=== PATIENT | male | born 1970 | race Hispanic/Latino ===

== ENCOUNTER 2018-02-18 18:47 | Inpatient (IN) | payer BC ==
--- NOTE | 2018-02-18 18:55 | ED PDOC ---
Arrival/HPI - General Time Seen by Provider: 02/18/18 18:51 Historian: Patient - History of Present Illness Narrative History of Present Illness (Text): 02/18/18 18:52 48 y/o male, no significant pmh, nkda, c/o feeling sad and depress after the of his brother recently. Pt. stated that he has been feeling depressed recently, been drinking a lot, found drinking on the street, fall and accidentally hit his posterior head against the floor with abrasion with LOC unknown, last tetanus under 3 years ago, no homicidal or suicidal ideation, no auditory or visual hallucination, no numbness or tingling, no rash, no change in vision, no other medical or psychological complaints. Past Medical History - Provider Review Nursing Documentation Reviewed: Yes Family/Social History - Physician Review Nursing Documentation Reviewed: Yes Family/Social History: Unknown Family HX Allergies/Home Meds Allergies/Adverse Reactions: Allergies No Known Allergies Allergy (Verified 02/18/18 18:53) Home Medications: Home Meds Medication Instructions Recorded Confirmed Alprazolam [Xanax] 0.5 mg PO TID 02/18/18 02/18/18 Review of Systems - Review of Systems Constitutional: absent: Fatigue, Fevers Eyes: absent: Vision Changes ENT: absent: Hearing Changes Respiratory: absent: SOB, Cough Cardiovascular: absent: Chest Pain Gastrointestinal: absent: Abdominal Pain, Nausea, Vomiting Musculoskeletal: absent: Arthralgias, Back Pain, Neck Pain Skin: Skin Lesions (+abrasion posterior scalp). absent: Rash, Pruritis, Laceration, Abscess, Ulcer, Cellulitis Neurological: absent: Headache, Dizziness Psychiatric: Depression. absent: Anxiety, Suicidal Ideation Physical Exam Vital Signs Temp Pulse Resp BP Pulse Ox 02/19/18 01:44 80 21 141/63 97 02/19/18 01:40 98 F 83 02/19/18 01:07 87 18 116/74 99 02/19/18 00:23 85 18 125/73 99 02/18/18 23:00 98.4 F 88 18 126/76 100 02/18/18 21:00 88 18 132/74 99 02/18/18 18:57 98.9 F 96 H 20 153/99 H 98 - Systems Exam Head: Present: Abrasion (posterior occipital scalp approx. 2cm diameter noted with no ulcer or laceration) Pupils: Present: PERRL Extroacular Muscles: Present: EOMI Conjunctiva: Present: Normal Ears: Present: NORMAL TM, Normal Canal. No: Erythema Mouth: Present: Moist Mucous Membranes, Normal Teeth Pharnyx: No: ERYTHEMA, EXUDATE, TONSILS ENLARGED Nose (External): Present: Atraumatic. No: Abrasion, Contusion, Laceration Nose (Internal): Present: Normal Inspection, No Active Bleeding. No: Rhinorrhea , Septal Hematoma, Epistaxis Neck: Present: Normal Range of Motion, Trachea Midline. No: MIDLINE TENDERNESS , Paraspinal Tenderness, Lymphadenopathy Respiratory/Chest: Present: Clear to Auscultation, Good Air Exchange. No: Respiratory Distress, Accessory Muscle Use Cardiovascular: Present: Regular Rate and Rhythm, Normal S1, S2. No: Murmurs Abdomen: No: Tenderness, Distention, Peritoneal Signs Back: Present: Normal Inspection. No: CVA Tenderness, Midline Tenderness, Paraspinal Tenderness, Pain with Leg Raise Upper Extremity: Present: Normal Inspection, Normal ROM, Neurovascularly Intact , Capillary Refill < 2s. No: Cyanosis, Edema, Tenderness, Swelling, Deformity Lower Extremity: Present: Normal Inspection, Normal ROM, Neurovascularly Intact , Capillary Refill < 2 s. No: Edema, Tenderness, Swelling, Deformity Neurological: Present: GCS=15, CN II-XII Intact, Speech Normal, Motor Func Grossly Intact, Memory Normal Skin: Present: Warm, Dry, Normal Color. No: Rashes Psychiatric: Present: Alert, Oriented x 3, Normal Insight, Normal Concentration , Depressed Mood Medical Decision Making ED Course and Treatment: 02/18/18 19:01 -labs/ua/uds -CT head -PES notified -wound irrigated with normal saline, clean with betadine, bacitracin and gauze dressing. -Observe and reassess 02/18/18 22:45 -NIHSS is zero, no focal neurological deficits, upper and lower extremities with full range of movement and full sensation intact. -CT Head: Acute subdural hemorrhage noted involving the left fronto parietal extending to the left temporal region, in the frontoparietal region maximal thickness is 6 mm. In the temporal region 5mm. There are parenchymal contusions inferior frontal lobe bilaterally 1.2 cm on the right and 1 cm on the left. There is subfalcine subdural hemorrhage midline posteriorly measuring 5.3 mm in thickness. neurosurgical consult is recommended. -Labs are non-significant except K+ 3.4 (potassium chloride 10 IV ordered) and Alcohol 365 (IV banana ordered). -I Spoke to the neurosurgeon DR. Kilpatrick, he reviewed the CT head, recommend to repeat CT head tomorrow and keep the patient in ICU, he will consult -I spoke to the ICU attending kelvinight, Dr. Blevins, discussed about the case/labs/ radiology result and Dr. Kilpatrick consult, he will come to evaluate the patient and take the patient to ICU. -Paging the admitting physician, Dr. Astudillo consumer studies professor for this case. 02/18/18 23:22 -I discussed with Dr. Astudillo about this case, agreed on the dr. kilpatrick consult and request Dr. Anton Vazquez for the routine consult -Dr. Shaw will put in the admission order. -Chest xray: Poor inspiration with low lung volumes, possible atelectasis 02/19/18 00:33 -EKG: NSR @ 80 BPM, no ST elevation or depression, no T wave inversion. - Critical Care Critical Care Minutes: 30 minutes Narrative Critical Care (Text): 02/18/18 22:48 ICH/bleeding, alcohol intoxication, serial neurological exam, IVF, hypokalemia - Lab Interpretations Lab Results: 02/18/18 19:33 02/18/18 19:33 Lab Results 02/18/18 19:33: WBC 5.3, RBC 3.77, Hgb 13.4 L, Hct 38.7 L, MCV 102.7, MCH 35.5 H , MCHC 34.6, RDW 14.5, Plt Count 112 L, MPV 10.0, Gran % 73.0 H, Lymph % (Auto) 17.2 L, Coffee % (Auto) 8.3 H, Eos % (Auto) 1.3 L, Baso % (Auto) 0.2, Gran # 3.87 , Lymph # (Auto) 0.9 L, Coffee # (Auto) 0.4, Eos # (Auto) 0.1, Baso # (Auto) 0.01 02/18/18 19:33: Alcohol, Quantitative 365 H* 02/18/18 19:33: Salicylates < 1 L, Acetaminophen < 10.0 L 02/18/18 19:33: Sodium 147, Potassium 3.4 L, Chloride 107, Carbon Dioxide 24, Anion Gap 20, BUN 9, Creatinine 0.6 L, Est GFR ( Amer) > 60, Est GFR (Non -Af Amer) > 60, Random Glucose 94, Calcium 8.7, Magnesium 2.0, Total Bilirubin 0.5, AST 110 H, ALT 55, Alkaline Phosphatase 79, Total Protein 7.0, Albumin 4.3 , Globulin 2.8, Albumin/Globulin Ratio 1.5 I have reviewed the lab results: Yes - RAD Interpretation Radiology Orders: 02/18/18 18:56 HEAD W/O CONTRAST [CT] Stat 02/18/18 22:30 CHEST PORTABLE [RAD] Stat No relevant prior studies available. FINDINGS: Brain: Acute subdural hemorrhage noted involving the left fronto parietal extending to the left temporal region, in the frontoparietal region maximal thickness is 6 mm. In the temporal region 5mm. There are parenchymal contusions inferior frontal lobe bilaterally 1.2 cm on the right and 1 cm on the left. There is subfalcine subdural hemorrhage midline posteriorly measuring 5.3 mm in thickness. No significant white matter disease. Ventricles: Unremarkable. No ventriculomegaly. Bones/joints: Unremarkable. No acute fracture. Soft tissues: Subcutaneous hematoma in the parietooccipital region posteriorly. Sinuses: Unremarkable as visualized. No acute sinusitis. Mastoid air cells: Unremarkable as visualized. No mastoid effusion. IMPRESSION: Acute subdural hemorrhage noted involving the left fronto parietal extending to the left temporal region, in the frontoparietal region maximal thickness is 6 mm. In the temporal region 5mm. There are parenchymal contusions inferior frontal lobe bilaterally 1.2 cm on the right and 1 cm on the left. There is subfalcine subdural hemorrhage midline posteriorly measuring 5.3 mm in thickness. neurosurgical consult is recommended. Thank you for allowing us to participate in the care of your patient. Dictated and Authenticated by: Mahsa Dc MD 02/18/2018 10:08 PM Eastern Time ([place] & [place]) Chest xray: Poor inspiration with low lung volumes, possible atelectasis [employer] Referee: Radiologist - EKG Interpretation EKG Interpretation (Text): 02/19/18 00:33 -EKG: NSR @ 80 BPM, no ST elevation or depression, no T wave inversion. Interpreted by ED Physician: Yes Type: 12 lead EKG - Medication Orders Current Medication Orders: Discontinued Medications Folic Acid (Folic Acid) 1 mg PO DAILY [facility] Last Admin: 02/20/18 09:24 Dose: 1 mg Sodium Chloride (Sodium Chloride 0.9%) 1,000 mls @ 999 mls/hr IV .Q1H1M STA Stop: 02/18/18 19:56 Last Admin: 02/18/18 19:36 Dose: 999 mls/hr eMAR Start Stop Document 02/18/18 19:36 ALEIDA (Rec: 02/18/18 19:39 ALEIDA [id number]) Intravenous Solution Start Date 02/18/18 Start Time 19:36 End Date 02/18/18 End time 20:36 Total Infusion Time 60 Multivitamins/Vitamin C 10 ml/Thiamine HCl 100 mg/ Folic Acid 1 mg/ Dextrose 1, 011.2 mls @ 1,000 mls/hr IV .Q1H1M ONE Stop: 02/18/18 23:30 Last Admin: 02/18/18 23:44 Dose: 1,000 mls/hr eMAR Start Stop Document 02/18/18 23:44 ALEIDA (Rec: 02/19/18 00:48 ALEIDA [id number]) Intravenous Solution Start Date 02/18/18 Start Time 23:44 End Date 02/19/18 End time 00:44 Total Infusion Time 60 Potassium Chloride (Potassium Chloride 10 Meq/100 Ml) 10 meq in 100 mls @ 50 mls/hr IVPB ONCE ONE Stop: 02/19/18 00:46 Last Admin: 02/19/18 00:57 Dose: 50 mls/hr eMAR Start Stop Document 02/19/18 00:57 ALEIDA (Rec: 02/19/18 00:57 ALEIDA [id number]) Intravenous Solution Start Date 02/19/18 Start Time 00:57 End Date 02/19/18 End time 02:57 Total Infusion Time 120 Sodium Chloride (Sodium Chloride 0.9%) 1,000 mls @ 100 mls/hr IV .Q10H [facility] Last Admin: 02/19/18 14:05 Dose: 100 mls/hr eMAR Start Stop Document 02/19/18 14:05 GLI (Rec: 02/19/18 14:06 GLI [id number]) Intravenous Solution Start Date 02/19/18 Start Time 14:05 End Date 02/19/18 Magnesium Sulfate/Dextrose (Magnesium Sulfate 1 Gm/100 Ml D5w) 1 gm in 100 mls @ 100 mls/hr IVPB ONCE ONE Stop: 02/19/18 07:51 Last Admin: 02/19/18 08:15 Dose: 100 mls/hr eMAR Start Stop Document 02/19/18 08:15 GLI (Rec: 02/19/18 08:15 GLI [id number]) Intravenous Solution Start Date 02/19/18 Start Time 08:15 End Date 02/19/18 Lorazepam (Ativan) 2 mg IVP Q6H PRN; Protocol PRN Reason: Agitation Last Admin: 02/19/18 08:33 Dose: 2 mg IVP Administration Document 02/19/18 08:33 GLI (Rec: 02/19/18 08:33 GLI [id number]) Charges for Administration # of IVP Administrations 1 Behavioural Document 02/19/18 08:33 GLI (Rec: 02/19/18 08:33 GLI [id number]) Maintenance Maintenance Dose Yes Nonmedicinal Nonmedicinal Interventions Therapeutic Communication Behavior Behavior for Medication: Anxiety Re-Assess: Reassess Psych Meds Document 02/19/18 09:03 GLI (Rec: 02/19/18 10:07 GLI [id number]) Reassess Psych Med Effective Lorazepam (Ativan) 2 mg IVP Q4 PRN; Protocol PRN Reason: Agitation Last Admin: 02/19/18 21:20 Dose: 2 mg IVP Administration Document 02/19/18 21:20 MPD (Rec: 02/19/18 21:21 MPD [id number]) Charges for Administration # of IVP Administrations 1 Behavioural Document 02/19/18 21:20 MPD (Rec: 02/19/18 21:21 MPD [id number]) Maintenance Maintenance Dose Yes Nonmedicinal Nonmedicinal Interventions Redirect Therapeutic Communication Give food/fluids Comment for prevention of DTs Behavior Behavior for Medication: Anxiety Re-Assess: Reassess Psych Meds Document 02/19/18 21:50 MPD (Rec: 02/20/18 05:12 MPD [id number]) Reassess Psych Med Effective Multivitamins/Minerals (Therapeutic-M Tab) 1 tab PO 0800 [facility] Last Admin: 02/20/18 08:25 Dose: 1 tab Ondansetron HCl (Zofran Inj) 4 mg IVP Q6H PRN PRN Reason: Nausea/Vomiting Pantoprazole Sodium (Protonix Inj) 40 mg IVP DAILY [facility] Last Admin: 02/20/18 09:24 Dose: 40 mg IVP Administration Document 02/20/18 09:24 OYELO (Rec: 02/20/18 09:[address] [facility] [id number] Charges for Administration # of IVP Administrations 1 Pantoprazole Sodium (Protonix Ec Tab) 40 mg PO ACB [facility] Thiamine HCl (Vitamin B1 Tab) 100 mg PO DAILY [facility] Last Admin: 02/20/18 09:24 Dose: 100 mg NIHSS Scale ([place]) Time Performed: 22:30 - How Severe is the Stoke Baseline Level of Consciousness: 0=Alert LOC to Questions: 0=Both comments correct LOC to commands: 0=Obeys both correctly Best Gaze: 0=Normal Visual: 0=No visual loss Facial: 0=Normal Motor Arm - Left: 0=No drift Motor Arm - Right: 0=No drift Motor Leg - Left: 0=No drift Motor Leg - Right: 0=No drift Limb Ataxia: 0=Absent Sensory: 0=Normal Best Language: 0=No aphasia Dysarthia: 0=Normal articulation Extinction & Inattention (Neglect): 0=Normal, no object Score: 0 Risk Level: No Stroke Risk rTPA Inclusion/Exclusion - Refusal of Treatment Patient Refused Treatment: No - Inclusion Criteria for Altepase Patient is 18 years or Older: Yes The Clinical Diagnosis of Ischemic Stroke That is Causing a Potentially Disabling Neurological Deficit: No Time of Onset is Well Established to be Less Than 270 Minute Before Treatment Would Begin: Yes Risk/Benefit Discussed With Patient/Family Member Present: Yes - Exclusion Criteria for Altepase Uncontrolled Hypertension at Time of Treatment (Systolic BP above 185 or Diastolic BP above 110 mmHg): No Less Than 3 Months Had a Recent: Head Trauma History of: Intracranial hemorrhage Active Internal Bleeding: Yes Known Bleeding Diathesis Including but Not Limited to: Platelets Below 100,000/ mm,PTT Above 40 sec After Heparin Use, Current Use of Oral Anitcoagulant With INR Greater Than 1.7 or PT Greater Than 15 secs: No Evidence of an Intracranial Hemorrhage: Yes Evidence of Major Acute Infarct With Signs Greater Than 1/3 MCA Territory: No Suspicion of Subarachnoid Hemorrhage on Pretreatment Evaluation Even if CT Head Negative For Hemorrhage: No - Warning to TPA With Conditions Following Conditions Weighed Against Anticipated Benefit: Yes Condition: Stroke Serevity Too Mild - PA / PANEL COVERER / Resident Statement MD/DO has reviewed & agrees with the documentation as recorded. Disposition/Present on Arrival - Present on Arrival Any Indicators Present on Arrival: No History of DVT/PE: No History of Uncontrolled Diabetes: No Urinary Catheter: No History of Decub. Ulcer: No - Disposition Have Diagnosis and Disposition been Completed?: Yes Diagnosis: Scalp abrasion, Subdural hemorrhage, Alcohol intoxication, Hypokalemia Disposition: HOSPITALIZED Disposition Time: 22:33 Patient Plan: Admission, ICU Condition: STABLE
[2018-02-18] MEDS ORDERED: Sodium Chloride 0.9% 1,000 ML IV STA (18:56)
[2018-02-18 19:53] LABS: BASO # 0.01 K/mm3 (0.0-2.0); BASO % 0.2 % (0.0-3.0); EOS # 0.1 (0.0-0.7); EOS % 1.3 % (1.5-5.0); GRAN # 3.87 (1.4-6.5); HEMOGLOBIN 13.4 g/dL (14.0-18.0); LYMPH # 0.9 (1.2-3.4); LYMPH % 17.2 % (22.0-35.0); MEAN CELL VOLUME 102.7 fl (80.0-105.0); MEAN CORPUSCULAR HEMOGLOBIN 35.5 pg (25.0-35.0); MEAN CORPUSCULAR HGB CONC 34.6 g/dl (31.0-37.0); MONO # 0.4 (0.1-0.6); MONO % 8.3 % (1.0-6.0); RBC 3.77 10^6/uL (3.5-6.1); RED CELL DISTRIBUTION WIDTH 14.5 % (11.5-14.5); WHITE BLOOD COUNT 5.3 10^3/ul (4.5-11.0)
[2018-02-18 19:54] LABS: ACETAMINOPHEN < 10.0 ug/ml (10.0-20.0); SALICYLATE < 1 mg/dL (2.0-20.0)
[2018-02-18 19:56] LABS: ALB/GLOB RATIO 1.5 (1.1-1.8); ALBUMIN 4.3 g/dL (3.0-4.8); ALT/SGPT 55 U/L (7-56); AST/SGOT 110 U/L (17-59); BLOOD UREA NITROGEN 9 mg/dL (7-21); CALCIUM 8.7 mg/dL (8.4-10.5); GFR AFRICAN-AMERICAN > 60; GFR NON-AFRICAN AMERICAN > 60
[2018-02-18] MEDS ORDERED: Multivitamin (MVI) 10 ML, Thiamine 100 MG, Folic Acid 1 MG in Dextrose 5% In Water 1,00... IV ONE (22:30)
[2018-02-18 23:21] LABS: INR 0.91 (0.93-1.08); PARTIAL THROMBOPLASTIN TIME 28.2 Seconds (25.1-36.5); PROTHROMBIN TIME 10.4 SECONDS (9.4-12.5)
--- NOTE | 2018-02-18 23:40 | CP.PCM.HP ---
Past Patient History - Past Social History Smoking Status: Current Some Days Smoker - CARDIAC Hx Cardiac Disorders: No - PULMONARY Hx Respiratory Disorders: No - NEUROLOGICAL Hx Neurological Disorder: No - HEENT Hx HEENT Problems: No - RENAL Hx Chronic Kidney Disease: No - ENDOCRINE/METABOLIC Hx Endocrine Disorders: No - HEMATOLOGICAL/ONCOLOGICAL Hx Blood Disorders: No - INTEGUMENTARY Hx Dermatological Problems: No - MUSCULOSKELETAL/RHEUMATOLOGICAL Hx Musculoskeletal Disorders: No - GASTROINTESTINAL Hx Gastrointestinal Disorders: No - GENITOURINARY/GYNECOLOGICAL Hx Genitourinary Disorders: No - PSYCHIATRIC Hx Anxiety: Yes Hx Substance Use: No - SURGICAL HISTORY Hx Surgeries: No Meds Allergies/Adverse Reactions: Allergies Allergy/AdvReac Type Severity Reaction Status Date / Time No Known Allergies Allergy Verified 02/18/18 18:53 Results - Vital Signs Recent Vital Signs: Last Vital Signs Temp 98.9 F 02/18/18 18:57 Pulse 96 H 02/18/18 18:57 Resp 20 02/18/18 18:57 BP 153/99 H 02/18/18 18:57 Pulse Ox 98 02/18/18 18:57 - Labs Result Diagrams: 02/18/18 19:33 02/18/18 19:33 Labs: Laboratory Results - last 24 hr 02/18/18 23:03 PT 10.4 INR 0.91 L APTT 28.2
--- NOTE | 2018-02-19 00:15 | CP.PCM.CON ---
<JonasLyla hennessy - Last Filed: 02/19/18 00:35> History of Present Illness - History of Present Illness History of Present Illness: ICU Consult Note, Es Smiley PGY2 Reason for consult: Subdural hematoma This is a 48yo male with past medical history of alcoholism, falls, skull fracture, depression, GI bleed, gastric bypass who came to ED for fall and alcohol intoxication. Patient reports he went to the bar after work and had several drinks (unsure of how many) and was feeling depressed about his brother passing away 2yrs ago. He reports he was waiting at the bus stop and he fell and hit his head. The police helped him up and brought him to the ED. Patient did lose consciousness at the time of the fall. Patient denies chest pain, shortness of breath, headache, vision changes, numbness/tingling, fever/chills, nausea/vomiting/diarrhea, suicidal ideation or homicidal ideation. He reports he has had admissions like this before at other hospitals in the past and has been admitted a few times for alcohol withdrawal. He did have a skull fracture and reports that they wanted to do surgery but he refused at the time. In ED, patient was found to have alcohol level of 365 and subdural hematoma on head CT. Neurosurgery was consulted and recommended patient be monitored in ICU. Past medical history: GI Bleed (tx at [facility]), skull fracture (from fall- tx at [facility]) , alcoholism, depression Past surgical history: gastric bypass Home meds: Denies Allergies: NKDA Social history: Drinks 4+ beers daily as well as 2+ shots of hard liquor, heavy smoker, denies drug use. Works in [employer]. Lives with family and has children Family history: Non-contributory PMD: Dr. Helms? [place], [place] Review of Systems - Review of Systems All systems: reviewed and no additional remarkable complaints except Review of Systems: 12 point ROS reviewed as per HPI and is otherwise negative. Past Patient History - Past Social History Smoking Status: Current Some Days Smoker - CARDIAC Hx Cardiac Disorders: No - PULMONARY Hx Respiratory Disorders: No - NEUROLOGICAL Hx Neurological Disorder: No - HEENT Hx HEENT Problems: No - RENAL Hx Chronic Kidney Disease: No - ENDOCRINE/METABOLIC Hx Endocrine Disorders: No - HEMATOLOGICAL/ONCOLOGICAL Hx Blood Disorders: No - INTEGUMENTARY Hx Dermatological Problems: No - MUSCULOSKELETAL/RHEUMATOLOGICAL Hx Musculoskeletal Disorders: No - GASTROINTESTINAL Hx Gastrointestinal Disorders: No - GENITOURINARY/GYNECOLOGICAL Hx Genitourinary Disorders: No - PSYCHIATRIC Hx Anxiety: Yes Hx Substance Use: No - SURGICAL HISTORY Hx Surgeries: No Meds Allergies/Adverse Reactions: Allergies Allergy/AdvReac Type Severity Reaction Status Date / Time No Known Allergies Allergy Verified 02/18/18 18:53 - Medications Medications: Current Medications Folic Acid (Folic Acid) 1 mg PO DAILY [facility] Potassium Chloride (Potassium Chloride 10 Meq/100 Ml) 10 meq in 100 mls @ 50 mls/hr IVPB ONCE ONE Stop: 02/19/18 00:46 Lorazepam (Ativan) 2 mg IVP Q6H PRN; Protocol PRN Reason: Agitation Multivitamins/Minerals (Therapeutic-M Tab) 1 tab PO 0800 [facility] Pantoprazole Sodium (Protonix Inj) 40 mg IVP DAILY [facility] Thiamine HCl (Vitamin B1 Tab) 100 mg PO DAILY [facility] Physical Exam - Constitutional Appears: No Acute Distress - Head Exam Head Exam: NORMAL INSPECTION, NORMOCEPHALIC Additional comments: Abrasion on occipital region of skull. abrasion on lip. - Eye Exam Eye Exam: Normal appearance, PERRL Pupil Exam: NORMAL ACCOMODATION - ENT Exam ENT Exam: Mucous Membranes Moist - Respiratory Exam Respiratory Exam: Clear to Auscultation Bilateral, NORMAL BREATHING PATTERN. absent: Rales, Rhonchi, Wheezes - Cardiovascular Exam Cardiovascular Exam: REGULAR RHYTHM, +S1, +S2. absent: Gallop, Rubs, Systolic Murmur - GI/Abdominal Exam GI & Abdominal Exam: Normal Bowel Sounds, Soft. absent: Mass, Rebound, Rigid, Tenderness - Extremities Exam Extremities exam: Positive for: normal inspection. Negative for: calf tenderness, pedal edema - Neurological Exam Neurological exam: Alert, CN II-XII Intact, Oriented x3 - Expanded Neurological Exam Expanded Patient oriented to: person, place, time Cranial nerves: EOM's Intact: Normal, Facial Palsey w/Forehead Movement: Normal , Facial Palsey w/o Forehead Movement: Normal, Facial Sensation: Normal Sensory exam: Lower Extremity 2 Point Discrimination: Normal, Lower Extremity Light Touch: Normal, Upper Extremity 2 Point Discrimination: Normal, Upper Extremity Light Touch: Normal Neuro motor strength exam: Left Upper Extremity: 5, Right Upper Extremity: 5, Left Lower Extremity: 5, Right Lower Extremity: 5 Coma Scale Eye Opening: SPONTANEOUS Coma Scale Motor Response: OBEYS COMMANDS Coma Scale Verbal: Oriented Coma Scale Total: 15 - Skin Skin Exam: Abrasion, Dry, Warm Results - Vital Signs Recent Vital Signs: Last Vital Signs Temp 98.9 F 02/18/18 18:57 Pulse 96 H 02/18/18 18:57 Resp 20 02/18/18 18:57 BP 153/99 H 02/18/18 18:57 Pulse Ox 98 02/18/18 18:57 - Labs Result Diagrams: 02/18/18 19:33 02/18/18 19:33 Labs: Laboratory Results - last 24 hr 02/18/18 23:03 PT 10.4 INR 0.91 L APTT 28.2 Assessment & Plan - Assessment and Plan (Free Text) Assessment: This is a 48yo male with past medical history of alcoholism, falls, skull fracture, depression, GI bleed, gastric bypass who is admitted for subdural hematoma and alcohol intoxication. Plan: Neuro: Head CT showed subdural hematoma in L frontoparietal region Neurosurgery consulted- recommend repeat head CT in AM Neuro consulted Neuro checks HOB elevated Seizure/fall precaution CIWA protocol Ativan prn Thiamine, Multivitamin, folic acid CV: EKG showed NSR, no QT prolongation Continue to monitor BP Maintain MAP >65 Pulm: Comfortable on room air Aspiration precaution Maintain spO2>90% GI: Passed bedside swallow eval Heart healthy diet Nephro: Hypokalemia (3.5)- replaced Monitor electrolytes and replace as needed Heme: Hold anticoagulation Monitor H/H ID: No sign of acute infection at this time Endo: Maintain euglycemia Psych: Patient tearful at times on exam. No suicidal or homicidal ideation Consider psych consult GI ppx: Protonix DVT ppx: SCDs Case seen, discussed and reviewed with Dr. Blevins. Es Smiley PGY2 - Date & Time Date: 02/19/18 Time: 00:35 <Navi Blevins - Last Filed: 02/19/18 00:42> Meds - Medications Medications: Current Medications Folic Acid (Folic Acid) 1 mg PO DAILY [facility] Potassium Chloride (Potassium Chloride 10 Meq/100 Ml) 10 meq in 100 mls @ 50 mls/hr IVPB ONCE ONE Stop: 02/19/18 00:46 Sodium Chloride (Sodium Chloride 0.9%) 1,000 mls @ 100 mls/hr IV .Q10H [facility] Lorazepam (Ativan) 2 mg IVP Q6H PRN; Protocol PRN Reason: Agitation Multivitamins/Minerals (Therapeutic-M Tab) 1 tab PO 0800 [facility] Ondansetron HCl (Zofran Inj) 4 mg IVP Q6H PRN PRN Reason: Nausea/Vomiting Pantoprazole Sodium (Protonix Inj) 40 mg IVP DAILY [facility] Thiamine HCl (Vitamin B1 Tab) 100 mg PO DAILY [facility] Results - Vital Signs Recent Vital Signs: Last Vital Signs Temp 98.4 F 02/18/18 23:00 Pulse 85 02/19/18 00:23 Resp 18 02/19/18 00:23 BP 125/73 02/19/18 00:23 Pulse Ox 99 02/19/18 00:23 - Labs Result Diagrams: 02/18/18 19:33 02/18/18 19:33 Labs: Laboratory Results - last 24 hr 02/18/18 23:03 PT 10.4 INR 0.91 L APTT 28.2 Attending/Attestation - Attestation I have personally seen and examined this patient.: Yes I have fully participated in the care of the patient.: Yes I have reviewed all pertinent clinical information: Yes Notes (Text): 02/19/18 00:41 Patient was seen when he was in bed # 5 in the ER. Agree with consult note.
[2018-02-19] MEDS: Sodium Chloride 0.9% 1,000 ML IV SCH ×2 (02:00→14:05)
[2018-02-19 06:31] LABS: BASO # 0.01 K/mm3 (0.0-2.0); BASO % 0.2 % (0.0-3.0); EOS # 0.1 (0.0-0.7); EOS % 1.3 % (1.5-5.0); GRAN # 4.19 (1.4-6.5); GRAN % 77.3 % (50.0-68.0); HEMOGLOBIN 12.5 g/dL (14.0-18.0); LYMPH # 0.8 (1.2-3.4); LYMPH % 14.4 % (22.0-35.0); MEAN CELL VOLUME 102.2 fl (80.0-105.0); MEAN CORPUSCULAR HEMOGLOBIN 34.9 pg (25.0-35.0); MEAN CORPUSCULAR HGB CONC 34.2 g/dl (31.0-37.0); MEAN PLATELET VOLUME 10.2 fl (7.0-11.0); MONO # 0.4 (0.1-0.6); MONO % 6.8 % (1.0-6.0); RBC 3.58 10^6/uL (3.5-6.1); RED CELL DISTRIBUTION WIDTH 14.2 % (11.5-14.5); WHITE BLOOD COUNT 5.4 10^3/ul (4.5-11.0)
[2018-02-19 06:34] LABS: ALB/GLOB RATIO 1.4 (1.1-1.8); ALBUMIN 3.7 g/dL (3.0-4.8); ALT/SGPT 47 U/L (7-56); AST/SGOT 96 U/L (17-59); BLOOD UREA NITROGEN 7 mg/dL (7-21); CALCIUM 8.2 mg/dL (8.4-10.5); GFR AFRICAN-AMERICAN > 60; GFR NON-AFRICAN AMERICAN > 60
[2018-02-19] MEDS ORDERED: Magnesium Sulfate 1 gm in D5W 1 GM/100 ML BAG IVPB ONE (06:52)
--- NOTE | 2018-02-19 08:10 | CP.CCUPN ---
<Betty Deleon - Last Filed: 02/19/18 14:53> CCU Subjective - Physician Review Subjective (Free Text): 02/19/18 08:13 tolerated breakfast/ Pt smoke. No BM No acute complaint CCU Objective - Vital Signs / Intake & Output Vital Signs (Last 4 hours): Vital Signs Temp Pulse Resp BP Pulse Ox 02/19/18 08:00 70 24 98 02/19/18 07:50 67 23 93 L 02/19/18 07:40 67 19 94 L 02/19/18 07:30 78 14 94 L 02/19/18 07:20 75 18 95 02/19/18 07:10 73 19 96 02/19/18 07:00 66 26 H 120/70 94 L 02/19/18 06:50 73 25 H 96 02/19/18 06:40 64 45 H 97 02/19/18 06:30 71 21 95 02/19/18 06:20 74 24 94 L 02/19/18 06:10 70 27 H 97 02/19/18 06:00 98.6 F 75 19 132/87 96 02/19/18 05:50 77 22 94 L 02/19/18 05:40 71 21 93 L 02/19/18 05:30 74 26 H 94 L 02/19/18 05:20 66 32 H 95 02/19/18 05:10 72 22 95 02/19/18 05:00 75 140/82 93 L 02/19/18 04:50 84 22 97 02/19/18 04:40 74 22 95 02/19/18 04:30 66 28 H 93 L 02/19/18 04:20 68 22 94 L Intake and Output (Last 8hrs): Intake & Output 02/18/18 02/19/18 02/19/18 22:59 06:59 14:59 Weight 186 lb 8 oz - Physical Exam Head: Positive for: Abrasion (posterior occipital scalp approx. 2cm diameter noted with no ulcer or laceration) Pupils: Positive for: PERRL Extroacular Muscles: Positive for: EOMI Conjunctiva: Positive for: Normal Ears: Positive for: NORMAL TM, Normal Canal. Negative for: Erythema Mouth: Positive for: Moist Mucous Membranes, Normal Teeth Pharnyx: Negative for: ERYTHEMA, EXUDATE, TONSILS ENLARGED Nose (External): Positive for: Atraumatic. Negative for: Abrasion, Contusion, Laceration Nose (Internal): Positive for: Normal Inspection, No Active Bleeding. Negative for: Rhinorrhea, Septal Hematoma, Epistaxis Neck: Positive for: Normal Range of Motion, Trachea Midline. Negative for: MIDLINE TENDERNESS, Paraspinal Tenderness, Lymphadenopathy Respiratory/Chest: Positive for: Clear to Auscultation, Good Air Exchange, Decreased Breath Sounds (b/l lung bases). Negative for: Respiratory Distress, Accessory Muscle Use Cardiovascular: Positive for: Regular Rate and Rhythm, Normal S1, S2. Negative for: Murmurs Abdomen: Negative for: Tenderness, Distention, Peritoneal Signs Back: Positive for: Normal Inspection. Negative for: CVA Tenderness, Midline Tenderness, Paraspinal Tenderness, Pain with Leg Raise Upper Extremity: Positive for: Normal Inspection, Normal ROM, Neurovascularly Intact, Capillary Refill < 2s. Negative for: Cyanosis, Edema, Tenderness, Swelling, Deformity Lower Extremity: Positive for: Normal Inspection, Normal ROM, Neurovascularly Intact, Capillary Refill < 2 s. Negative for: Edema, Tenderness, Swelling, Deformity Neurological: Positive for: GCS=15, CN II-XII Intact, Speech Normal, Motor Func Grossly Intact, Other (b/l arm tremors) Skin: Positive for: Warm, Dry, Normal Color. Negative for: Rashes Psychiatric: Positive for: Alert, Oriented x 3, Normal Insight, Normal Concentration, Depressed Mood - Medications Active Medications: Active Medications Generic Name Dose Route Start Last Admin Trade Name Freq PRN Reason Stop Dose Admin Folic Acid 1 mg 02/19/18 10:00 Folic Acid PO DAILY [facility] Sodium Chloride 1,000 mls @ 100 mls/hr 02/19/18 00:30 02/19/18 02:00 Sodium Chloride 0.9% IV 100 mls/hr .Q10H DAMI Administration Lorazepam 2 mg 02/18/18 23:37 Ativan IVP Q6H PRN Agitation Protocol Multivitamins/Minerals 1 tab 02/19/18 08:00 Therapeutic-M Tab PO 0800 DAMI Ondansetron HCl 4 mg 02/19/18 00:36 Zofran Inj IVP Q6H PRN Nausea/Vomiting Pantoprazole Sodium 40 mg 02/19/18 10:00 Protonix Inj IVP DAILY DAMI Thiamine HCl 100 mg 02/19/18 10:00 Vitamin B1 Tab PO DAILY DAMI - Patient Studies Lab Studies: Lab Studies 02/19/18 02/19/18 02/18/18 Range/Units 06:00 06:00 23:03 WBC 5.4 (4.5-11.0) 10^3/ul RBC 3.58 (3.5-6.1) 10^6/uL Hgb 12.5 L (14.0-18.0) g/dL Hct 36.6 L (42.0-52.0) % MCV 102.2 (80.0-105.0) fl MCH 34.9 (25.0-35.0) pg MCHC 34.2 (31.0-37.0) g/dl RDW 14.2 (11.5-14.5) % Plt Count 95 L (120.0-450.0) 10^3/uL MPV 10.2 (7.0-11.0) fl Gran % 77.3 H (50.0-68.0) % Lymph % (Auto) 14.4 L (22.0-35.0) % Evangeline % (Auto) 6.8 H (1.0-6.0) % Eos % (Auto) 1.3 L (1.5-5.0) % Baso % (Auto) 0.2 (0.0-3.0) % Gran # 4.19 (1.4-6.5) Lymph # (Auto) 0.8 L (1.2-3.4) Evangeline # (Auto) 0.4 (0.1-0.6) Eos # (Auto) 0.1 (0.0-0.7) Baso # (Auto) 0.01 (0.0-2.0) K/mm3 PT 10.4 (9.4-12.5) SECONDS INR 0.91 L (0.93-1.08) APTT 28.2 (25.1-36.5) Seconds Sodium 141 (132-148) mmol/L Potassium 3.6 (3.6-5.0) mmol/L Chloride 104 (98-107) mmol/L Carbon Dioxide 25 (21-33) mmol/L Anion Gap 15 (10-20) BUN 7 (7-21) mg/dL Creatinine 0.5 L (0.8-1.5) mg/dl Est GFR ( Amer) > 60 Est GFR (Non-Af Amer) > 60 Random Glucose 83 (70-110) mg/dL Calcium 8.2 L (8.4-10.5) mg/dL Magnesium 1.5 L (1.7-2.2) mg/dL Total Bilirubin 1.1 (0.2-1.3) mg/dL AST 96 H (17-59) U/L ALT 47 (7-56) U/L Alkaline Phosphatase 65 (38-126) U/L Total Protein 6.4 (5.8-8.3) g/dL Albumin 3.7 (3.0-4.8) g/dL Globulin 2.7 gm/dL Albumin/Globulin Ratio 1.4 (1.1-1.8) Laboratory Results - last 24 hr 02/18/18 02/19/18 02/19/18 23:03 06:00 06:00 WBC 5.4 RBC 3.58 Hgb 12.5 L Hct 36.6 L MCV 102.2 MCH 34.9 MCHC 34.2 RDW 14.2 Plt Count 95 L MPV 10.2 Gran % 77.3 H Lymph % (Auto) 14.4 L Evangeline % (Auto) 6.8 H Eos % (Auto) 1.3 L Baso % (Auto) 0.2 Gran # 4.19 Lymph # (Auto) 0.8 L Evangeline # (Auto) 0.4 Eos # (Auto) 0.1 Baso # (Auto) 0.01 PT 10.4 INR 0.91 L APTT 28.2 Sodium 141 Potassium 3.6 Chloride 104 Carbon Dioxide 25 Anion Gap 15 BUN 7 Creatinine 0.5 L Est GFR ( Amer) > 60 Est GFR (Non-Af Amer) > 60 Random Glucose 83 Calcium 8.2 L Magnesium 1.5 L Total Bilirubin 1.1 AST 96 H ALT 47 Alkaline Phosphatase 65 Total Protein 6.4 Albumin 3.7 Globulin 2.7 Albumin/Globulin Ratio 1.4 EKG/Cardiology Studies: Cardiology / EKG Studies 02/19/18 00:28 ELECTROCARDIOGRAM Stat Comment: Reason For Exam: ETOH PRE OP:: N Does Patient Have a Pacemaker?: No Critical Care Progress Note - Nutrition Nutrition: Nutrition Category Date Time Status Heart Healthy Diet [DIET] Diets 02/18/18 Dinner Active Assessment/Plan - Assessment and Plan (Free Text) Plan: Juan Mena, 48 M, with PMH alcoholism, falls, prior skull fracture, depression , prior GI bleed, gastric bypass who is admitted for subdural hematoma and alcohol intoxication. CT head (02/18) Acute subdural hemorrhage noted @ left fronto parietal extending to the left temporal region, in the frontoparietal region maximal thickness is 6 mm. In the temporal region 5mm. (+) parenchymal contusions inferior frontal lobe bilaterally 1.2 cm on the right and 1 cm on the left. There is subfalcine subdural hemorrhage midline posteriorly measuring 5.3 mm in thickness. T 98.6, HR 76, 120/70, RR 24, 98% RA Hb 13.4 --> 12.5 INR 0.91 Plt 112 --> 95 No transfusion A: Subdural hematoma @ (a) Parieto-occipital b/l (R > L; today is smaller), (b) Left extensive, (c) R frontal; countrecoup @ b/l frontal contusion (same today) CIWA Neuro: Head CT showed subdural hematoma in L frontoparietal region Neurosurgery consulted- recommend repeat head CT in AM Neuro checks HOB elevated Seizure/fall precaution CIWA protocol - 2; JHOAN 365 Ativan prn Thiamine, Multivitamin, folic acid CV: EKG showed NSR, no QT prolongation Continue to monitor BP Maintain MAP >65 Stop IVF, pt can eats Goal SBP 130-140 Pulm: Comfortable on room air Aspiration precaution Maintain spO2>90% GI: Passed bedside swallow eval Heart healthy diet Nephro: Monitor electrolytes and replace as needed Heme: Hold anticoagulation Monitor H/H ID: No sign of acute infection at this time Endo: Maintain euglycemia Psych: Patient was tearful at times day 1. His mood is calm today. No suicidal or homicidal ideation GI ppx: Protonix DVT ppx: SCDs Consult: Taylor Guevara Dispo: No plan for neurosurg intervention; continue neuro check. repeat CT head scab per Dr. Tam tomorrow. Continue CIWA. If CIWA > 15 will add schedule ativan s/r/d/w Dr. Berg <Dixon Berg - Last Filed: 02/19/18 15:15> CCU Objective - Vital Signs / Intake & Output Intake and Output (Last 8hrs): Intake & Output 02/19/18 02/19/18 02/19/18 06:59 14:59 22:59 Intake Total 620 Output Total 500 Balance 120 Weight 186 lb 8 oz 186 lb Intake: IV 500 Right Antecubital 500 Oral 120 Output: Stool 500 Other: Voiding Method Urinal - Medications Active Medications: Active Medications Generic Name Dose Route Start Last Admin Trade Name Freq PRN Reason Stop Dose Admin Folic Acid 1 mg 02/19/18 10:00 02/19/18 10:06 Folic Acid PO 1 mg DAILY DAMI Administration Lorazepam 2 mg 02/19/18 14:42 Ativan IVP Q4 PRN Agitation Protocol Multivitamins/Minerals 1 tab 02/19/18 08:00 02/19/18 08:34 Therapeutic-M Tab PO 1 tab 0800 DAMI Administration Ondansetron HCl 4 mg 02/19/18 00:36 Zofran Inj IVP Q6H PRN Nausea/Vomiting Pantoprazole Sodium 40 mg 02/19/18 10:00 02/19/18 10:06 Protonix Inj IVP 40 mg DAILY DAMI Administration Thiamine HCl 100 mg 02/19/18 10:00 02/19/18 10:05 Vitamin B1 Tab PO 100 mg DAILY DAMI Administration - Patient Studies Lab Studies: Lab Studies 02/19/18 02/19/18 02/18/18 Range/Units 06:00 06:00 23:03 WBC 5.4 (4.5-11.0) 10^3/ul RBC 3.58 (3.5-6.1) 10^6/uL Hgb 12.5 L (14.0-18.0) g/dL Hct 36.6 L (42.0-52.0) % MCV 102.2 (80.0-105.0) fl MCH 34.9 (25.0-35.0) pg MCHC 34.2 (31.0-37.0) g/dl RDW 14.2 (11.5-14.5) % Plt Count 95 L (120.0-450.0) 10^3/uL MPV 10.2 (7.0-11.0) fl Gran % 77.3 H (50.0-68.0) % Lymph % (Auto) 14.4 L (22.0-35.0) % Evangeline % (Auto) 6.8 H (1.0-6.0) % Eos % (Auto) 1.3 L (1.5-5.0) % Baso % (Auto) 0.2 (0.0-3.0) % Gran # 4.19 (1.4-6.5) Lymph # (Auto) 0.8 L (1.2-3.4) Evangeline # (Auto) 0.4 (0.1-0.6) Eos # (Auto) 0.1 (0.0-0.7) Baso # (Auto) 0.01 (0.0-2.0) K/mm3 PT 10.4 (9.4-12.5) SECONDS INR 0.91 L (0.93-1.08) APTT 28.2 (25.1-36.5) Seconds Sodium 141 (132-148) mmol/L Potassium 3.6 (3.6-5.0) mmol/L Chloride 104 (98-107) mmol/L Carbon Dioxide 25 (21-33) mmol/L Anion Gap 15 (10-20) BUN 7 (7-21) mg/dL Creatinine 0.5 L (0.8-1.5) mg/dl Est GFR ( Amer) > 60 Est GFR (Non-Af Amer) > 60 Random Glucose 83 (70-110) mg/dL Calcium 8.2 L (8.4-10.5) mg/dL Magnesium 1.5 L (1.7-2.2) mg/dL Total Bilirubin 1.1 (0.2-1.3) mg/dL AST 96 H (17-59) U/L ALT 47 (7-56) U/L Alkaline Phosphatase 65 (38-126) U/L Total Protein 6.4 (5.8-8.3) g/dL Albumin 3.7 (3.0-4.8) g/dL Globulin 2.7 gm/dL Albumin/Globulin Ratio 1.4 (1.1-1.8) Laboratory Results - last 24 hr 02/18/18 02/19/18 02/19/18 23:03 06:00 06:00 WBC 5.4 RBC 3.58 Hgb 12.5 L Hct 36.6 L MCV 102.2 MCH 34.9 MCHC 34.2 RDW 14.2 Plt Count 95 L MPV 10.2 Gran % 77.3 H Lymph % (Auto) 14.4 L Evangeline % (Auto) 6.8 H Eos % (Auto) 1.3 L Baso % (Auto) 0.2 Gran # 4.19 Lymph # (Auto) 0.8 L Evangeline # (Auto) 0.4 Eos # (Auto) 0.1 Baso # (Auto) 0.01 PT 10.4 INR 0.91 L APTT 28.2 Sodium 141 Potassium 3.6 Chloride 104 Carbon Dioxide 25 Anion Gap 15 BUN 7 Creatinine 0.5 L Est GFR ( Amer) > 60 Est GFR (Non-Af Amer) > 60 Random Glucose 83 Calcium 8.2 L Magnesium 1.5 L Total Bilirubin 1.1 AST 96 H ALT 47 Alkaline Phosphatase 65 Total Protein 6.4 Albumin 3.7 Globulin 2.7 Albumin/Globulin Ratio 1.4 EKG/Cardiology Studies: Cardiology / EKG Studies 02/19/18 00:28 ELECTROCARDIOGRAM Stat Comment: Reason For Exam: ETOH PRE OP:: N Does Patient Have a Pacemaker?: No Critical Care Progress Note - Nutrition Nutrition: Nutrition Category Date Time Status Heart Healthy Diet [DIET] Diets 02/18/18 Dinner Active Attending/Attestation - Attestation I have personally seen and examined this patient.: Yes I have fully participated in the care of the patient.: Yes I have reviewed all pertinent clinical information: Yes Notes (Text): 02/19/18 15:14 48 yo male with SDH-->no nsx intervention as per Dr. Stephens; repeat CTH in am. ativan prn for alcohol withdrawal. maintain euvolemia, euglycemia and 02sat> 90%. DVT/GI prophylaxis ccm time 40 min
[2018-02-19] MEDS: Multivitamin With Minerals Tab PO SCH (08:34)
[2018-02-19 08:37] VITALS: BMI 25.9
--- NOTE | 2018-02-19 09:38 | CP.PCM.PN ---
Subjective - Date & Time of Evaluation Date of Evaluation: 02/19/18 Time of Evaluation: 09:39 - Subjective Subjective: This is a 48yo male with past medical history of alcoholism, falls, skull fracture, depression, GI bleed, gastric bypass who came to ED for fall and alcohol intoxication. Patient reports he went to the bar after work and had several drinks (unsure of how many) and was feeling depressed about his brother passing away 2yrs ago. He reports he was waiting at the bus stop and he fell and hit his head. The police helped him up and brought him to the ED. Patient did lose consciousness at the time of the fall. Patient denies chest pain, shortness of breath, headache, vision changes, numbness/tingling, fever/chills, nausea/vomiting/diarrhea, suicidal ideation or homicidal ideation. He reports he has had admissions like this before at other hospitals in the past and has been admitted a few times for alcohol withdrawal. He did have a skull fracture and reports that they wanted to do surgery but he refused at the time. In ED, patient was found to have alcohol level of 365 and subdural hematoma on head CT. Neurosurgery was consulted and recommended patient be monitored in ICU. Past medical history: GI Bleed (tx at [place]), skull fracture (from fall- tx at [place]) , alcoholism, depression Past surgical history: gastric bypass Home meds: Denies Allergies: NKDA Social history: Drinks 4+ beers daily as well as 2+ shots of hard liquor, heavy smoker, denies drug use. Works in [employer]. Lives with family and has children Family history: Non-contributory Exam Aeake alert ox2 MARCELLE eom full face sym motor 5/5 with no drift sensory intact CT small l sdh wwith bifrontal contursions repeat study shows SDH less and contusions about same no surgery indicated at this time cont obs Objective - Vital Signs/Intake and Output Vital Signs (last 24 hours): Temp Pulse Resp BP Pulse Ox 98.8 F 71 22 139/82 98 02/19/18 08:00 02/19/18 08:50 02/19/18 08:50 02/19/18 08:17 02/19/18 08:50 Intake and Output: 02/19/18 02/19/18 06:59 18:59 Intake Total 620 Output Total 500 Balance 120 - Medications Medications: Current Medications Folic Acid (Folic Acid) 1 mg PO DAILY [facility] Sodium Chloride (Sodium Chloride 0.9%) 1,000 mls @ 100 mls/hr IV .Q10H [facility] Last Admin: 02/19/18 02:00 Dose: 100 mls/hr Lorazepam (Ativan) 2 mg IVP Q6H PRN; Protocol PRN Reason: Agitation Last Admin: 02/19/18 08:33 Dose: 2 mg Multivitamins/Minerals (Therapeutic-M Tab) 1 tab PO 0800 [facility] Last Admin: 02/19/18 08:34 Dose: 1 tab Ondansetron HCl (Zofran Inj) 4 mg IVP Q6H PRN PRN Reason: Nausea/Vomiting Pantoprazole Sodium (Protonix Inj) 40 mg IVP DAILY [facility] Thiamine HCl (Vitamin B1 Tab) 100 mg PO DAILY [facility] - Labs Labs: 02/19/18 06:00 02/19/18 06:00 PT 10.4 SECONDS (9.4-12.5) 02/18/18 23:03 INR 0.91 (0.93-1.08) L 02/18/18 23:03 APTT 28.2 Seconds (25.1-36.5) 02/18/18 23:03
--- NOTE | 2018-02-19 10:10 | CT ---
PROCEDURE: CT HEAD WITHOUT CONTRAST. HISTORY: Subdural hematoma COMPARISON: Comparison made with prior CT scan brain 02/18/2018. TECHNIQUE: Axial computed tomography images were obtained through the head/brain without intravenous contrast. Radiation dose: Total exam DLP = 914.1 mGy-cm. This CT exam was performed using one or more of the following dose reduction techniques: Automated exposure control, adjustment of the mA and/or kV according to patient size, and/or use of iterative reconstruction technique. FINDINGS: HEMORRHAGE: Bilateral inferior frontal pole hemorrhagic contusional changes again noted. . Note that these contusions are likely contrecoup injury as direct impact appears to have occurred in the parieto-occipital region based on relatively large mid and bilateral (right larger than left) posterior parieto-occipital scalp contusion changes. Note that the scalp contusion changes appear to have diminished slightly. Also again noted is a relatively thin of but extensive left-sided subdural hematoma which has undergone some layering redistribution with a slight increased amount of subdural hemorrhage layering in the posterior margin of the interhemispheric fissure an along the tentorium. A very tiny right frontal subdural hematoma component may be present well. . . Suspect small left inferior temporal lobe hemorrhagic contusions. BRAIN: Several scattered areas of low attenuation seen in the deep and subcortical white matter both cerebral hemispheres likely represent chronic sequela of small vessel disease. Minimal chronic periventricular white matter ischemic changes are also felt be present. Mild -moderate generalized volume loss. VENTRICLES: No obstructive hydrocephalus. CALVARIUM: Calvarium intact. PARANASAL SINUSES: Unremarkable as visualized. No significant inflammatory changes. MASTOID AIR CELLS: Unremarkable as visualized. No inflammatory changes. OTHER FINDINGS: None. IMPRESSION: Bilateral inferior frontal pole hemorrhagic contusional changes again noted. . Note that these contusions are likely contrecoup injury as direct impact appears to have occurred in the parieto-occipital region based on relatively large mid and bilateral (right larger than left) posterior parieto-occipital scalp contusion changes. Note that the scalp contusion changes appear to have diminished slightly. Also again noted is a relatively thin of but extensive left-sided subdural hematoma which has undergone some layering redistribution with a slight increased amount of subdural hemorrhage layering in the posterior margin of the interhemispheric fissure an along the tentorium. A very tiny right frontal subdural hematoma component may be present well. Suspect small left inferior temporal lobe hemorrhagic contusions. Mild chronic white matter ischemic changes. Mild to moderate generalized volume loss
--- NOTE | 2018-02-19 13:44 | CARD ---
APPROVED REPORT EKG Measurement Heart [id number] <Conclusion> Normal sinus rhythm Normal ECG
--- NOTE | 2018-02-19 15:32 | CT ---
PROCEDURE: CT HEAD WITHOUT CONTRAST. HISTORY: ETOH, posterior head injury, COMPARISON: None available. TECHNIQUE: Axial computed tomography images were obtained through the head/brain without intravenous contrast. Radiation dose: Total exam DLP = 910.28 mGy-cm. This CT exam was performed using one or more of the following dose reduction techniques: Automated exposure control, adjustment of the mA and/or kV according to patient size, and/or use of iterative reconstruction technique. FINDINGS: HEMORRHAGE: Bilateral inferior frontal pole hemorrhagic contusional changes again noted. . Note that these contusions are likely contrecoup injury as direct impact appears to have occurred in the parieto-occipital region based on relatively large mid and bilateral (right larger than left) posterior parieto-occipital scalp contusion changes. Questionable early hemorrhagic contusional changes left inferior temporal lobe There is a thin of but extensive left-sided subdural hematoma which extends from skullbase, ie. inferior aspect left middle cranial fossa to near the vertex. In the posterior margin of the interhemispheric fissure an along the tentorium. A very tiny right frontal subdural hematoma component may be present well. . Small amount of hemorrhage is seen in the interhemispheric fissure Questionable BRAIN: Several scattered areas of low attenuation seen in the deep and subcortical white matter both cerebral hemispheres likely represent chronic sequela of small vessel disease. Minimal chronic periventricular white matter ischemic changes are also felt be present. VENTRICLES: No obstructive hydrocephalus. CALVARIUM: Unremarkable. PARANASAL SINUSES: Unremarkable as visualized. No significant inflammatory changes. MASTOID AIR CELLS: Unremarkable as visualized. No inflammatory changes. OTHER FINDINGS: None. IMPRESSION: Bilateral inferior frontal pole hemorrhagic contusional changes again noted. . Note that these contusions are likely contrecoup injury as direct impact appears to have occurred in the parieto-occipital region based on relatively large mid and bilateral (right larger than left) posterior parieto-occipital scalp contusion changes. Questionable early hemorrhagic contusional changes left inferior temporal lobe There is a thin of but extensive left-sided subdural hematoma which extends from skullbase, ie. inferior aspect left middle cranial fossa to near the vertex. In the posterior margin of the interhemispheric fissure an along the tentorium. A very tiny right frontal subdural hematoma component may be present well. . Small amount of hemorrhage is seen in the interhemispheric fissure
--- NOTE | 2018-02-19 15:51 | RAD ---
HISTORY: medical clearance COMPARISON: No prior. FINDINGS: LUNGS: Poor inspiration with low lung volumes, crowded bronchovascular markings and mild bibasilar atelectasis. PLEURA: No significant pleural effusion identified, no pneumothorax apparent. CARDIOVASCULAR: Normal. OSSEOUS STRUCTURES: No significant abnormalities. VISUALIZED UPPER ABDOMEN: Normal. OTHER FINDINGS: None. IMPRESSION: Poor inspiration with low lung volumes, crowded bronchovascular markings and mild bibasilar atelectasis.
[2018-02-19 18:13] LABS: BARBITURATES, UR NEGATIVE (NEGATIVE); BENZODIAZEPINES, UR NEGATIVE (NEGATIVE); OPIATES, UR NEGATIVE (NEGATIVE); PHENCYCLIDINE, UR NEGATIVE (NEGATIVE)
[2018-02-20 07:13] LABS: BASO # 0.01 K/mm3 (0.0-2.0); BASO % 0.2 % (0.0-3.0); EOS # 0.1 (0.0-0.7); EOS % 1.4 % (1.5-5.0); GRAN % 71.7 % (50.0-68.0); HEMOGLOBIN 12.4 g/dL (14.0-18.0); LYMPH # 0.7 (1.2-3.4); LYMPH % 17.4 % (22.0-35.0); MEAN CELL VOLUME 100.8 fl (80.0-105.0); MEAN CORPUSCULAR HEMOGLOBIN 34.7 pg (25.0-35.0); MEAN CORPUSCULAR HGB CONC 34.4 g/dl (31.0-37.0); MEAN PLATELET VOLUME 10.1 fl (7.0-11.0); MONO # 0.4 (0.1-0.6); MONO % 9.3 % (1.0-6.0); RBC 3.57 10^6/uL (3.5-6.1); RED CELL DISTRIBUTION WIDTH 13.7 % (11.5-14.5); WHITE BLOOD COUNT 4.2 10^3/ul (4.5-11.0)
--- NOTE | 2018-02-20 07:49 | HP ---
CHIEF COMPLAINT AND HISTORY OF PRESENT ILLNESS: This is a 48-year-old male who is coming into the hospital with a history of alcohol use, fall, gastric bypass. The patient had been intoxicated and had a fall that he had gone work and had been drinking. He says that he was depressed because his brother who had about 2 years ago. He had been had a fall. He did lose consciousness. He denies any chest pain. No dizziness, no abdominal pain, no back pain, no dysuria or frequency, no nocturia, no incontinence. He does not have a history of seizures. His alcohol level was 365. When he came in, he was admitted to the ICU for further evaluation. He is asking about being discharged to go home. I did advise him that he needs to stay in the hospital for further evaluation. ALLERGIES: NO KNOWN DRUG ALLERGIES. HOME MEDICATIONS: None. PAST SURGICAL HISTORY: Gastric bypass. PAST MEDICAL HISTORY: GI bleed, skull fracture, alcoholism, depression. SOCIAL HISTORY: He drinks beers daily, multiple beers with shots of hard liquor. He smokes. He denies drug use. He works as a . He lives with his children. FAMILY HISTORY: Noncontributory. REVIEW OF SYSTEMS: All other review of symptoms are within normal limits except what was mentioned. PHYSICAL EXAMINATION VITAL SIGNS: Temperature is 98.6, pulse of 70, respiration is 24, O2 saturation 98%, blood pressure is 153/98. GENERAL: The patient lying in bed, uncomfortable, and in no acute distress. HEENT: Atraumatic and normocephalic. Anicteric sclerae. Moist mucosa. [place] conjunctivae. No oral lesions. NECK: No JVD, anterior and posterior adenopathy, thyromegaly, or bruits. CARDIOVASCULAR: S1 and S2 regular. No murmur, rubs, or gallop. LUNGS: Clear to auscultation bilaterally. No wheezes, rales, or rhonchi. ABDOMEN: Bowel sounds are positive. Soft, nontender and nondistended. No hepatosplenomegaly. No rebound and no guarding EXTREMITIES: No cyanosis, clubbing, or edema. NEUROLOGIC: No facial asymmetry. Tongue is midline. No uvula deviation. Power is 5/5 upper extremity and lower extremity. Sensation intact in upper extremity and lower extremity. PSYCHIATRIC: He is awake, alert and oriented x3. No anxiety or depression. He has normal affect. GENITOURINARY: No CVA tenderness. VASCULAR: 2+ pulses in the carotid pulses and pedal pulses. SKIN: No erythema or nodules SPINE: Shows normal curvature. LABORATORY DATA: Labs have been reviewed. White count of 5.3, he has a potassium of 3.6 and magnesium is 1.5. Salicylate and acetaminophen has been negative. His CT of the head showed subdural hematoma in the left frontoparietal area. He had a chest x-ray that shows no infiltrates. ASSESSMENT: 1. Subdural hematoma. 2. Alcoholism. 3. Fall. 4. Depression. PLAN: The patient is going to be admitted to the hospital. He is going to be followed by Neurosurgery and by Neurology. He is going to be on [facility] protocol for his alcoholism. He is going to be on thiamine and vitamins. He was advised to stay in the hospital. He is on IV fluids. The patient is on magnesium and potassium replacement. I did speak to the motorcycle mechanic regarding the case. The patient is going to have a repeat CT scan that has been ordered. He is going to be on a heart-healthy diet. Keith Villagomez MD
[2018-02-20 08:03] LABS: ALB/GLOB RATIO 1.3 (1.1-1.8); ALBUMIN 3.6 g/dL (3.0-4.8); ALT/SGPT 38 U/L (7-56); AST/SGOT 62 U/L (17-59); BLOOD UREA NITROGEN 6 mg/dL (7-21); CALCIUM 8.4 mg/dL (8.4-10.5); GFR AFRICAN-AMERICAN > 60; GFR NON-AFRICAN AMERICAN > 60
[2018-02-20] MEDS: Multivitamin With Minerals Tab PO SCH (08:25)
--- NOTE | 2018-02-20 08:27 | PN ---
DATE: 02/19/2018 SUBJECTIVE: The patient is seen and examined at bedside. He is 48-year-old gentleman without significant past medical history who presented to [facility] after he fell, passed out, and was found to have subdural hematoma. The patient woke up and was admitted to ICU for further management and monitoring. Neurosurgery was consulted; however, not deemed Neurosurgery needed at that time. No nausea, no vomiting, no diarrhea, no constipation. No fever, no chills, no sweats. PAST MEDICAL HISTORY: None. HOME MEDICATION: Xanax 0.5 mg p.o. t.i.d. ALLERGIES: NKDA. SOCIAL HISTORY: The patient is an active smoker. He smokes about one pack a day for many years. He drinks every day 3-4 beers and 2 shots of hard liquor. No illicit drugs. FAMILY HISTORY: Noncontributory. REVIEW OF SYSTEMS: Review of 12-organ system other than mentioned in history of present illness is negative. PHYSICAL EXAMINATION: GENERAL: The patient is alert, awake, and oriented x3, comfortable, protecting airways, watching TV. VITAL SIGNS: Heart rate 67, oxygen saturation 94% on room air, respiratory rate 26, blood pressure 139/82. ENT: Head and neck atraumatic. LUNGS: Clear to auscultation bilaterally. HEART: Regular rate and rhythm. S1 and S2 normal. ABDOMEN: Soft, nontender, nondistended. MUSCULOSKELETAL: No C/C/E. NEUROLOGIC: Motor strength 5/5 in both upper and lower extremities. No apparent cranial nerve dysfunction, II to XII. SKIN: Moist. PSYCHIATRIC: The patient is alert, awake, and oriented x3. LABORATORY DATA: WBC 5.4, hemoglobin 12.5, platelet count 95. Sodium 141, potassium 3.6, chloride 104, carbon dioxide 25, BUN 7, creatinine 0.5, glucose 83. MEDICATIONS: Folic acid, Ativan p.r.n., multivitamins, Zofran p.r.n., Protonix, normal saline 100 mL/hour, and thiamine 100 mg p.o. daily CAT scan as was mentioned above showed small bilateral acute subdural hematoma. ASSESSMENT AND PLAN: This is a 48-year-old gentleman who presented with acute small subdural hematoma. He does not have any focal motor deficit or any clinical signs of elevated intracranial pressure. We will repeat CAT scan. We will continue to maintain euvolemia, euglycemia, normothermia, and oxygen saturation more than 90%. Speech and swallow evaluation. Neurology followup. Deep venous thrombosis and gastric prophylaxis. Dixon Berg MD
--- NOTE | 2018-02-20 11:43 | CP.CCUPN ---
<Roney Deleonine - Last Filed: 02/20/18 11:40> CCU Subjective - Physician Review Subjective (Free Text): 02/19/18 08:13 tolerated breakfast/ Pt smoke. No BM No acute complaint 02/20/18 11:40 No acute complain. Pt wanted to go home. Pt is diaphoretic with hand shakes. Discussed about the significance of brain bleed and continual BP control and neuro check CCU Objective - Vital Signs / Intake & Output Vital Signs (Last 4 hours): Vital Signs Temp Pulse Resp BP Pulse Ox 02/20/18 10:20 64 19 98 02/20/18 10:10 65 97 02/20/18 10:00 66 27 H 150/80 97 02/20/18 09:50 76 97 02/20/18 09:47 79 17 02/20/18 09:46 83 21 02/20/18 09:45 80 26 H 02/20/18 09:44 81 140 H 02/20/18 09:43 86 43 H 02/20/18 09:42 73 19 02/20/18 09:41 87 02/20/18 09:40 95 H 34 H 02/20/18 09:36 77 35 H 02/20/18 09:30 81 22 95 02/20/18 09:20 65 22 96 02/20/18 09:14 72 144/90 02/20/18 09:10 72 20 95 02/20/18 09:09 70 15 144/90 02/20/18 08:43 79 17 02/20/18 08:42 79 24 02/20/18 08:41 80 13 02/20/18 08:40 74 02/20/18 08:39 74 21 02/20/18 08:38 75 17 02/20/18 08:37 81 02/20/18 08:36 91 H 32 H 02/20/18 08:35 93 H 20 02/20/18 08:34 103 H 57 H 02/20/18 08:33 67 46 H 02/20/18 08:32 75 33 H 02/20/18 08:31 84 02/20/18 08:30 82 84 H 97 02/20/18 08:20 60 24 95 02/20/18 08:10 81 7 L 95 02/20/18 08:00 98.8 F 68 15 153/93 H 96 02/20/18 07:50 105 H 47 H 97 Intake and Output (Last 8hrs): Intake & Output 02/19/18 02/20/18 02/20/18 22:59 06:59 14:59 Intake Total 2150 1340 Output Total 951 700 Balance 1199 640 Weight 189 lb 8 oz 189 lb Intake: IV 1200 1100 Right Antecubital 1200 1100 Oral 950 240 Output: Urine 950 700 Urine, Voided 950 700 Stool 1 Other: # Bowel Movements 1 0 - Physical Exam Head: Positive for: Abrasion (posterior occipital scalp approx. 2cm diameter noted with no ulcer or laceration) Pupils: Positive for: PERRL Extroacular Muscles: Positive for: EOMI Conjunctiva: Positive for: Normal Ears: Positive for: NORMAL TM, Normal Canal. Negative for: Erythema Mouth: Positive for: Moist Mucous Membranes, Normal Teeth Pharnyx: Negative for: ERYTHEMA, EXUDATE, TONSILS ENLARGED Nose (External): Positive for: Atraumatic. Negative for: Abrasion, Contusion, Laceration Nose (Internal): Positive for: Normal Inspection, No Active Bleeding. Negative for: Rhinorrhea, Septal Hematoma, Epistaxis Neck: Positive for: Normal Range of Motion, Trachea Midline. Negative for: MIDLINE TENDERNESS, Paraspinal Tenderness, Lymphadenopathy Respiratory/Chest: Positive for: Clear to Auscultation, Good Air Exchange, Decreased Breath Sounds (b/l lung bases). Negative for: Respiratory Distress, Accessory Muscle Use Cardiovascular: Positive for: Regular Rate and Rhythm, Normal S1, S2. Negative for: Murmurs Abdomen: Negative for: Tenderness, Distention, Peritoneal Signs Back: Positive for: Normal Inspection. Negative for: CVA Tenderness, Midline Tenderness, Paraspinal Tenderness, Pain with Leg Raise Upper Extremity: Positive for: Normal Inspection, Normal ROM, Neurovascularly Intact, Capillary Refill < 2s. Negative for: Cyanosis, Edema, Tenderness, Swelling, Deformity Lower Extremity: Positive for: Normal Inspection, Normal ROM, Neurovascularly Intact, Capillary Refill < 2 s. Negative for: Edema, Tenderness, Swelling, Deformity Neurological: Positive for: GCS=15, CN II-XII Intact, Speech Normal, Motor Func Grossly Intact, Other (b/l arm tremors) Skin: Positive for: Warm, Dry, Normal Color. Negative for: Rashes Psychiatric: Positive for: Alert, Oriented x 3, Normal Insight, Normal Concentration, Depressed Mood - Medications Active Medications: Active Medications Generic Name Dose Route Start Last Admin Trade Name Freq PRN Reason Stop Dose Admin Folic Acid 1 mg 02/19/18 10:00 02/20/18 09:24 Folic Acid PO 1 mg DAILY DAMI Administration Lorazepam 2 mg 02/19/18 14:42 02/19/18 21:20 Ativan IVP 2 mg Q4 PRN Administration Agitation Protocol Multivitamins/Minerals 1 tab 02/19/18 08:00 02/20/18 08:25 Therapeutic-M Tab PO 1 tab 0800 DAMI Administration Ondansetron HCl 4 mg 02/19/18 00:36 Zofran Inj IVP Q6H PRN Nausea/Vomiting Pantoprazole Sodium 40 mg 02/21/18 07:30 Protonix Ec Tab PO ACB DAMI Thiamine HCl 100 mg 02/19/18 10:00 02/20/18 09:24 Vitamin B1 Tab PO 100 mg DAILY DAMI Administration - Patient Studies Lab Studies: Lab Studies 02/20/18 02/20/18 02/19/18 Range/Units 06:00 06:00 16:30 WBC 4.2 L D (4.5-11.0) 10^3/ul RBC 3.57 (3.5-6.1) 10^6/uL Hgb 12.4 L (14.0-18.0) g/dL Hct 36.0 L (42.0-52.0) % MCV 100.8 (80.0-105.0) fl MCH 34.7 (25.0-35.0) pg MCHC 34.4 (31.0-37.0) g/dl RDW 13.7 (11.5-14.5) % Plt Count 77 L (120.0-450.0) 10^3/uL MPV 10.1 (7.0-11.0) fl Gran % 71.7 H (50.0-68.0) % Lymph % (Auto) 17.4 L (22.0-35.0) % [place] % (Auto) 9.3 H (1.0-6.0) % Eos % (Auto) 1.4 L (1.5-5.0) % Baso % (Auto) 0.2 (0.0-3.0) % Gran # 3.00 (1.4-6.5) Lymph # (Auto) 0.7 L (1.2-3.4) [place] # (Auto) 0.4 (0.1-0.6) Eos # (Auto) 0.1 (0.0-0.7) Baso # (Auto) 0.01 (0.0-2.0) K/mm3 Sodium 137 (132-148) mmol/L Potassium 3.6 (3.6-5.0) mmol/L Chloride 102 (98-107) mmol/L Carbon Dioxide 26 (21-33) mmol/L Anion Gap 13 (10-20) BUN 6 L (7-21) mg/dL Creatinine 0.5 L (0.8-1.5) mg/dl Est GFR ( Amer) > 60 Est GFR (Non-Af Amer) > 60 Random Glucose 89 (70-110) mg/dL Calcium 8.4 (8.4-10.5) mg/dL Magnesium 2.0 (1.7-2.2) mg/dL Total Bilirubin 0.9 (0.2-1.3) mg/dL AST 62 H D (17-59) U/L ALT 38 (7-56) U/L Alkaline Phosphatase 64 (38-126) U/L Total Protein 6.3 (5.8-8.3) g/dL Albumin 3.6 (3.0-4.8) g/dL Globulin 2.7 gm/dL Albumin/Globulin Ratio 1.3 (1.1-1.8) Urine Opiates Screen Negative (NEGATIVE) Urine Methadone Screen Negative (NEGATIVE) Ur Barbiturates Screen Negative (NEGATIVE) Ur Phencyclidine Scrn Negative (NEGATIVE) Ur Amphetamines Screen Negative (NEGATIVE) U Benzodiazepines Scrn Negative (NEGATIVE) U Oth Cocaine Metabols Negative (NEGATIVE) U Cannabinoids Screen Negative (NEGATIVE) Laboratory Results - last 24 hr 02/19/18 02/20/18 02/20/18 16:30 06:00 06:00 WBC 4.2 L D RBC 3.57 Hgb 12.4 L Hct 36.0 L MCV 100.8 MCH 34.7 MCHC 34.4 RDW 13.7 Plt Count 77 L MPV 10.1 Gran % 71.7 H Lymph % (Auto) 17.4 L [place] % (Auto) 9.3 H Eos % (Auto) 1.4 L Baso % (Auto) 0.2 Gran # 3.00 Lymph # (Auto) 0.7 L [place] # (Auto) 0.4 Eos # (Auto) 0.1 Baso # (Auto) 0.01 Sodium 137 Potassium 3.6 Chloride 102 Carbon Dioxide 26 Anion Gap 13 BUN 6 L Creatinine 0.5 L Est GFR ( Amer) > 60 Est GFR (Non-Af Amer) > 60 Random Glucose 89 Calcium 8.4 Magnesium 2.0 Total Bilirubin 0.9 AST 62 H D ALT 38 Alkaline Phosphatase 64 Total Protein 6.3 Albumin 3.6 Globulin 2.7 Albumin/Globulin Ratio 1.3 Urine Opiates Screen Negative Urine Methadone Screen Negative Ur Barbiturates Screen Negative Ur Phencyclidine Scrn Negative Ur Amphetamines Screen Negative U Benzodiazepines Scrn Negative U Oth Cocaine Metabols Negative U Cannabinoids Screen Negative Critical Care Progress Note - Nutrition Nutrition: Nutrition Category Date Time Status Heart Healthy Diet [DIET] Diets 02/18/18 Dinner Active Assessment/Plan - Assessment and Plan (Free Text) Plan: Juan Mena, 48 M, with PMH alcoholism, falls, prior skull fracture, depression , prior GI bleed, gastric bypass who is admitted for subdural hematoma and alcohol intoxication. CT head (02/18) Acute subdural hemorrhage noted @ left fronto parietal extending to the left temporal region, in the frontoparietal region maximal thickness is 6 mm. In the temporal region 5mm. (+) parenchymal contusions inferior frontal lobe bilaterally 1.2 cm on the right and 1 cm on the left. There is subfalcine subdural hemorrhage midline posteriorly measuring 5.3 mm in thickness. A: Subdural hematoma @ (a) Parieto-occipital b/l, (b) Left extensive, (c) R frontal ; countrecoup @ b/l frontal contusion CIWA for alcohol withdrawal to prevent delirium tremens Neuro: Head CT showed subdural hematoma in L frontoparietal region Neurosurgery consulted- recommend repeat head CT in AM Neuro checks HOB elevated Seizure/fall precaution CIWA protocol 6; JHOAN 365 Ativan prn Thiamine, Multivitamin, folic acid CV: EKG showed NSR, no QT prolongation Continue to monitor BP Maintain MAP >65 Stop IVF, pt can eats Goal SBP 130-140 Pulm: Comfortable on room air Aspiration precaution Maintain spO2>90% GI: Passed bedside swallow eval Heart healthy diet Nephro: Monitor electrolytes and replace as needed Heme: Hold anticoagulation Monitor H/H ID: No sign of acute infection at this time Endo: Maintain euglycemia Psych: Patient was tearful at times day 1. His mood is calm today. No suicidal or homicidal ideation GI ppx: Protonix DVT ppx: SCDs Consult: Taylor Guevara Dispo: No plan for neurosurg intervention; continue neuro check. repeat CT head pending official read, pending Dr. Tam to clear pt to downgrade to tele. Continue CIWA. If CIWA > 15 will add schedule ativan s/r/d/w Dr. Helm <Chance Helm - Last Filed: 02/20/18 12:37> CCU Objective - Vital Signs / Intake & Output Vital Signs (Last 4 hours): Vital Signs Pulse Resp BP Pulse Ox 02/20/18 10:20 64 19 98 02/20/18 10:10 65 97 02/20/18 10:00 66 27 H 150/80 97 02/20/18 09:50 76 97 02/20/18 09:47 79 17 02/20/18 09:46 83 21 02/20/18 09:45 80 26 H 02/20/18 09:44 81 140 H 02/20/18 09:43 86 43 H 02/20/18 09:42 73 19 02/20/18 09:41 87 02/20/18 09:40 95 H 34 H 02/20/18 09:36 77 35 H 02/20/18 09:30 81 22 95 02/20/18 09:20 65 22 96 02/20/18 09:14 72 144/90 02/20/18 09:10 72 20 95 02/20/18 09:09 70 15 144/90 02/20/18 08:43 79 17 02/20/18 08:42 79 24 02/20/18 08:41 80 13 02/20/18 08:40 74 02/20/18 08:39 74 21 02/20/18 08:38 75 17 02/20/18 08:37 81 02/20/18 08:36 91 H 32 H 02/20/18 08:35 93 H 20 02/20/18 08:34 103 H 57 H 02/20/18 08:33 67 46 H Intake and Output (Last 8hrs): Intake & Output 02/19/18 02/20/18 02/20/18 22:59 06:59 14:59 Intake Total 2150 1340 Output Total 951 700 Balance 1199 640 Weight 189 lb 8 oz 189 lb Intake: IV 1200 1100 Right Antecubital 1200 1100 Oral 950 240 Output: Urine 950 700 Urine, Voided 950 700 Stool 1 Other: # Bowel Movements 1 0 - Medications Active Medications: Active Medications Generic Name Dose Route Start Last Admin Trade Name Freq PRN Reason Stop Dose Admin Folic Acid 1 mg 02/19/18 10:00 02/20/18 09:24 Folic Acid PO 1 mg DAILY DAMI Administration Lorazepam 2 mg 02/19/18 14:42 02/19/18 21:20 Ativan IVP 2 mg Q4 PRN Administration Agitation Protocol Multivitamins/Minerals 1 tab 02/19/18 08:00 02/20/18 08:25 Therapeutic-M Tab PO 1 tab 0800 DAMI Administration Ondansetron HCl 4 mg 02/19/18 00:36 Zofran Inj IVP Q6H PRN Nausea/Vomiting Pantoprazole Sodium 40 mg 02/21/18 07:30 Protonix Ec Tab PO ACB DAMI Thiamine HCl 100 mg 02/19/18 10:00 02/20/18 09:24 Vitamin B1 Tab PO 100 mg DAILY DAMI Administration - Patient Studies Lab Studies: Lab Studies 02/20/18 02/20/18 02/19/18 Range/Units 06:00 06:00 16:30 WBC 4.2 L D (4.5-11.0) 10^3/ul RBC 3.57 (3.5-6.1) 10^6/uL Hgb 12.4 L (14.0-18.0) g/dL Hct 36.0 L (42.0-52.0) % MCV 100.8 (80.0-105.0) fl MCH 34.7 (25.0-35.0) pg MCHC 34.4 (31.0-37.0) g/dl RDW 13.7 (11.5-14.5) % Plt Count 77 L (120.0-450.0) 10^3/uL MPV 10.1 (7.0-11.0) fl Gran % 71.7 H (50.0-68.0) % Lymph % (Auto) 17.4 L (22.0-35.0) % [place] % (Auto) 9.3 H (1.0-6.0) % Eos % (Auto) 1.4 L (1.5-5.0) % Baso % (Auto) 0.2 (0.0-3.0) % Gran # 3.00 (1.4-6.5) Lymph # (Auto) 0.7 L (1.2-3.4) [place] # (Auto) 0.4 (0.1-0.6) Eos # (Auto) 0.1 (0.0-0.7) Baso # (Auto) 0.01 (0.0-2.0) K/mm3 Sodium 137 (132-148) mmol/L Potassium 3.6 (3.6-5.0) mmol/L Chloride 102 (98-107) mmol/L Carbon Dioxide 26 (21-33) mmol/L Anion Gap 13 (10-20) BUN 6 L (7-21) mg/dL Creatinine 0.5 L (0.8-1.5) mg/dl Est GFR ( Amer) > 60 Est GFR (Non-Af Amer) > 60 Random Glucose 89 (70-110) mg/dL Calcium 8.4 (8.4-10.5) mg/dL Magnesium 2.0 (1.7-2.2) mg/dL Total Bilirubin 0.9 (0.2-1.3) mg/dL AST 62 H D (17-59) U/L ALT 38 (7-56) U/L Alkaline Phosphatase 64 (38-126) U/L Total Protein 6.3 (5.8-8.3) g/dL Albumin 3.6 (3.0-4.8) g/dL Globulin 2.7 gm/dL Albumin/Globulin Ratio 1.3 (1.1-1.8) Urine Opiates Screen Negative (NEGATIVE) Urine Methadone Screen Negative (NEGATIVE) Ur Barbiturates Screen Negative (NEGATIVE) Ur Phencyclidine Scrn Negative (NEGATIVE) Ur Amphetamines Screen Negative (NEGATIVE) U Benzodiazepines Scrn Negative (NEGATIVE) U Oth Cocaine Metabols Negative (NEGATIVE) U Cannabinoids Screen Negative (NEGATIVE) Laboratory Results - last 24 hr 02/19/18 02/20/18 02/20/18 16:30 06:00 06:00 WBC 4.2 L D RBC 3.57 Hgb 12.4 L Hct 36.0 L MCV 100.8 MCH 34.7 MCHC 34.4 RDW 13.7 Plt Count 77 L MPV 10.1 Gran % 71.7 H Lymph % (Auto) 17.4 L [place] % (Auto) 9.3 H Eos % (Auto) 1.4 L Baso % (Auto) 0.2 Gran # 3.00 Lymph # (Auto) 0.7 L [place] # (Auto) 0.4 Eos # (Auto) 0.1 Baso # (Auto) 0.01 Sodium 137 Potassium 3.6 Chloride 102 Carbon Dioxide 26 Anion Gap 13 BUN 6 L Creatinine 0.5 L Est GFR ( Amer) > 60 Est GFR (Non-Af Amer) > 60 Random Glucose 89 Calcium 8.4 Magnesium 2.0 Total Bilirubin 0.9 AST 62 H D ALT 38 Alkaline Phosphatase 64 Total Protein 6.3 Albumin 3.6 Globulin 2.7 Albumin/Globulin Ratio 1.3 Urine Opiates Screen Negative Urine Methadone Screen Negative Ur Barbiturates Screen Negative Ur Phencyclidine Scrn Negative Ur Amphetamines Screen Negative U Benzodiazepines Scrn Negative U Oth Cocaine Metabols Negative U Cannabinoids Screen Negative Critical Care Progress Note - Nutrition Nutrition: Nutrition Category Date Time Status Heart Healthy Diet [DIET] Diets 02/18/18 Dinner Active Attending/Attestation - Attestation I have personally seen and examined this patient.: Yes I have fully participated in the care of the patient.: Yes I have reviewed all pertinent clinical information: Yes Notes (Text): 02/20/18 12:32 The patient was seen and examined at the bedside. Patient care was discussed with resident Medical records, lab studies were reviewed and management issues were discussed and formulated. Last 24H events reviewed. Agree with above treatment plans as outlined in 's note with addition of the following: Subdural hematoma \ ETOH abuse\ -hemodynamic monitoring to maintain MAP>65 -o2 supplementation to maintain Spo2>90 Pao2>60 -neurosurgery team following and is not planning any surgical intervention at this time -f\u repeat CT head -neurology team f\u -f\u Bun\Cr and U\o; monitor and replace e-lites -PO diet and aspiration precautions -continue neuro checks as per neurosurgery protocol -continue Thiamine, folic acid and MVI -monitor for ETOH withdrawal and continue Ativan PRN -PT\OT eval -DVT \ PUD prophylaxis CCM f\u time 26
--- NOTE | 2018-02-20 12:30 | CP.PCM.PN ---
Subjective - Date & Time of Evaluation Date of Evaluation: 02/20/18 Time of Evaluation: 12:29 - Subjective Subjective: awake alert no deficits ct unchanged clear by neruosurgery for d.c Objective - Vital Signs/Intake and Output Vital Signs (last 24 hours): Temp Pulse Resp BP Pulse Ox 98.8 F 64 19 150/80 98 02/20/18 08:00 02/20/18 10:20 02/20/18 10:20 02/20/18 10:00 02/20/18 10:20 Intake and Output: 02/20/18 02/20/18 06:59 18:59 Intake Total 1340 Output Total 700 Balance 640 - Medications Medications: Current Medications Folic Acid (Folic Acid) 1 mg PO DAILY [facility] Last Admin: 02/20/18 09:24 Dose: 1 mg Lorazepam (Ativan) 2 mg IVP Q4 PRN; Protocol PRN Reason: Agitation Last Admin: 02/19/18 21:20 Dose: 2 mg Multivitamins/Minerals (Therapeutic-M Tab) 1 tab PO 0800 [facility] Last Admin: 02/20/18 08:25 Dose: 1 tab Ondansetron HCl (Zofran Inj) 4 mg IVP Q6H PRN PRN Reason: Nausea/Vomiting Pantoprazole Sodium (Protonix Ec Tab) 40 mg PO ACB [facility] Thiamine HCl (Vitamin B1 Tab) 100 mg PO DAILY [facility] Last Admin: 02/20/18 09:24 Dose: 100 mg - Labs Labs: 02/20/18 06:00 02/20/18 06:00 PT 10.4 SECONDS (9.4-12.5) 02/18/18 23:03 INR 0.91 (0.93-1.08) L 02/18/18 23:03 APTT 28.2 Seconds (25.1-36.5) 02/18/18 23:03
[2018-02-20 13:41] VITALS: TEMP 99
[2018-02-20 13:43] VITALS: BP 157/98; PULSE 63; RESP 18; O2SAT 97
--- NOTE | 2018-02-20 14:17 | CT ---
PROCEDURE: CT HEAD WITHOUT CONTRAST. HISTORY: compare bleed COMPARISON: 02/19/2018. TECHNIQUE: Axial computed tomography images were obtained through the head/brain without intravenous contrast. Radiation dose: Total exam DLP = mGy-cm. This CT exam was performed using one or more of the following dose reduction techniques: Automated exposure control, adjustment of the mA and/or kV according to patient size, and/or use of iterative reconstruction technique. FINDINGS: HEMORRHAGE: There are evolving hemorrhagic contusions in bilateral paramedian inferior frontal lobes. There is redemonstration of small cortical hemorrhagic contusions in the left paramedian and deep parietal lobe. There is interval evolution and mild decrease in size of left paramedian subdural hematoma along the posterior interhemispheric fissure. There is also interval evolution of left frontal subdural hematoma. BRAIN: No mass or mass effect. No herniation. VENTRICLES: There is mild age-related global parenchymal volume loss and proportionate enlargement of the ventricles and cortical sulci. CALVARIUM: There is no calvarial fracture. There is an evolving posterior and right parietal scalp hematoma. PARANASAL SINUSES: Predominantly clear. MASTOID AIR CELLS: Predominantly clear. OTHER FINDINGS: None. IMPRESSION: 1. Evolving bilateral paramedian inferior frontal hemorrhagic contusions. 2. Redemonstration of small cortical contusions in the left paramedian and deep parietal cortex. 3. Interval evolution of left paramedian subdural hematoma along the posterior interhemispheric fissure. 3. Interval evolution of left frontal subdural hematoma.
--- NOTE | 2018-02-20 15:11 | CON ---
DATE: 02/20/2018 NEUROLOGY CONSULTATION CHIEF COMPLAINT: Small bilateral subdurals. HISTORY OF PRESENT ILLNESS: This is a 48-year-old man with history of chronic alcoholism and binge drinks, falls, prior skull fracture, depression, prior GI bleed with gastric bypass, admitted for alcohol intoxication with elevated alcohol level of 365, found to have acute subdural hematoma in the left frontal parietal extending to the left temporal region and the frontal parietal region, maximal thickness of 6 mm and has also in the temporal region, 5 mm and possible parenchymal contusions inferiorly in the frontal lobe bilaterally, 1.2 cm on the right and 1 cm on the left. There is also mild subfalcine subdural hemorrhage in the midline measuring 5.3 mm in thickness. Currently he is tremulous. He, otherwise, has some intermittent elevated blood pressures, is otherwise doing well, moving all extremities equally, no pronator drift seen. He has multivitamins, he is on Ativan for agitation and folic acid and thiamine. PAST MEDICAL HISTORY: As above. SOCIAL HISTORY: Daily drinker, occasional smoker. No illicit drug use. REVIEW OF SYSTEMS: A 14-point review of systems is negative except as in the HPI. FAMILY HISTORY: Noncontributory. MEDICATIONS: Reviewed by nurse's reconciliation sheet. LABORATORY DATA: Alcohol level 265, sodium 135, potassium 3.6, chloride 102, carbon dioxide 26, BUN 6, creatinine 0.5, random glucose of 89. PHYSICAL EXAMINATION: VITAL SIGNS: Temperature afebrile, pulse is 66, blood pressure 150/80, respiratory rate 19, oxygen saturation 98% on room air. GENERAL: Patient is sitting up in bed, in no acute distress. HEENT: Head is atraumatic, normocephalic. PERRLA. Extraocular muscles intact. NECK: Supple. No JVD. No adenopathy noted. LUNGS: Clear to auscultation. No adventitious sounds. HEART: S1 and S2. Normal rate and rhythm. No murmurs, rubs, or gallops. ABDOMEN: Soft, nontender, nondistended. Bowel sounds present. EXTREMITIES: No clubbing. No cyanosis. Peripheral pulses 2+ felt bilaterally. NEUROLOGIC: Patient is alert and oriented to person, place, month, and year. Flat affect. Speech is fluent. Cranial nerves II through XII intact. Motor exam: Moves all extremities equally. Toes are downgoing bilaterally. Sensory exam: Light touch, pinprick, proprioception, and vibration intact. DTRs are 2+ throughout. Coordination: [id number] intact. Gait is deferred for now. ASSESSMENT AND PLAN: This is a 48-year-old man with history of chronic alcoholism, prior skull fracture from falls, depression, prior gastrointestinal bleeding, gastric bypass who was admitted for alcohol intoxication and acute subdural in left frontal parietal area as well as bilateral inferior frontal lobe 1.2 cm on the right and 1 cm on the left with some subfalcine, subdural hemorrhage as well. Neurosurgery has seen the patient and recommended no further neurosurgical intervention at this time, . His fall is likely secondary from alcohol intoxication indicative of poor balance. RECOMMENDATIONS: 1. CIWA protocol for alcohol withdrawal to prevent delirium tremens. 2. Need psychiatric evaluation for counseling/depression. 3. Neuro checks. 4. Thiamine, multivitamin, folic acid. 5. Ativan p.r.n. for agitation. 6. Continue with current present medical management and PT/OT evaluation. 7. Monitor electrolytes and correct accordingly. Hay Vazquez MD
[2018-02-21] MEDS ORDERED: Pantoprazole 40 mg EC Tab PO SCH (07:30)
--- NOTE | 2018-02-22 08:08 | DS ---
HISTORY OF PRESENT ILLNESS: The patient is 48-year-old, who was admitted on after he had a fall. Patient was drunk well. He had similar episode a couple of years ago. Patient stated he does not remember exactly, but he passed out and somebody called ambulance, was brought to the ER. He was found to have subdural hematoma, remained in ICU. He had CT scan done this morning, showed no midline shift and however, he had evolving bilateral paramedian inferior frontal hemorrhagic contusion and with small cortical contusion in the left paramedian and deep parietal cortex and interval evolution of paramedian subdural hematoma along with the posterior interhemispheric fissure and interval evolution of left frontal subdural hematoma. Patient was evaluated by neurosurgeon. He was cleared for surgery. Although the patient was having withdrawal symptom, he was advised to stay but he wanted to leave instead. 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 He was discharged. PHYSICAL EXAMINATION: GENERAL: Earlier, he is awake, alert, oriented, communicative. No complaint of nausea or vomiting. No diarrhea. VITAL SIGNS: Patient is afebrile, pulse 63, respirations 18, blood pressure 150/98. LUNGS: Bilateral clear airflow. No rhonchi or crackle. HEART: S1, S2 audible. ABDOMEN: Soft, nontender. No rebound. No guarding. NEUROLOGICAL: Patient is awake, alert, oriented, communicative. LABORATORY EXAM: WBC 4.2, hemoglobin 12.4, hematocrit 36, platelets 77. Chemistry: Sodium 137, potassium 3.6, chloride 102, CO2 26, BUN 6, creatinine 0.5. Blood sugar of 89, AST 62. Alcohol level was 365. ASSESSMENT AND PLAN: 1. Alcohol intoxication. 2. Status post fall. 3. Syncope. 4. Status post parenchymal contusion. 5. Subdural hematoma. PLAN: Patient was advised to stay; however, he signed against medical advice. We will try to follow with this patient. Adelita Astudillo MD
== END 2018-02-20 14:08 | disposition left against medical advice (07) | DRG 84 ==
LOC: ED 18:47 → ERH 22:41 → MERGE 22:41 → ERH 23:24 → CCU 02-19 01:43
PROVIDERS: ADMIT Internal Medicine; ATTEND Internal Medicine
DX: S06.5X9A Traumatic subdural hemorrhage with loss of consciousness of unspecified duration, initial encounter (principal); W19.XXXA Unspecified fall, initial encounter; S02.91XA Unspecified fracture of skull, initial encounter for closed fracture; S00.01XA Abrasion of scalp, initial encounter; F10.229 Alcohol dependence with intoxication, unspecified; Y90.8 Blood alcohol level of 240 mg/100 ml or more; E87.6 Hypokalemia; F17.210 Nicotine dependence, cigarettes, uncomplicated; Z98.84 Bariatric surgery status; F32.89 Other specified depressive episodes; R40.2412 Glasgow coma scale score 13-15, at arrival to emergency department